=== PATIENT | male | born 1980 | race Two or more races ===

== ENCOUNTER 2017-02-26 21:54 | Emergency (ER) | payer OTHER ==
[2017-02-26] MEDS ORDERED: KETOROLAC TROMETHAMINE 15 MG/ML VIAL IM ONE (22:26)
[2017-02-26] MEDS ORDERED: KETOROLAC TROMETHAMINE 30 MG/1 ML VIAL IM ONE (22:30)
--- NOTE | 2017-02-26 22:57 | PDOC ---
History of Present Illness - General Chief Complaint: Pain, Acute Stated Complaint: INJURY SUNDAY,PAIN TO LOWER BACK DOWN RIGHT LEG Time Seen by Provider: 02/26/17 22:19 - History of Present Illness Initial Comments: 02/26/17 22:52 36 M with no PMH presents to ER with 1 week of R hip pain. Pt states that he fell last week, slipping on a stairwell and landing onto his R hip. He denies headstrike/LOC. Denies neck pain. Pt states that he went to a hospital and had X rays done that he was told were negative. However, he presents with persistent pain today. He expresses concern that they did not perform the X rays properly, as they were having "computer issues". Pt denies CHAVEZ/N/V. States that he has been able to ambulate unassisted but has pain with weight bearing. Pt states that the pain radiates from his lower back down his leg. Denies paresthesias, denies numbness/weakness. Denies saddle anesthesia, denies incontinence of urine or stool. Past History - Past Medical History Allergies/Adverse Reactions: Allergies Allergy/AdvReac Type Severity Reaction Status Date / Time No Known Allergies Allergy Verified 02/26/17 22:50 Home Medications: Ambulatory Orders Ibuprofen [Motrin -] 800 mg PO Q6H #30 tablet 04/24/16 Oxycodone HCl/Acetaminophen [Percocet 5-325 mg Tablet] 1 tab PO Q4H #20 tablet MDD 4 04/24/16 - Psycho/Social/Smoking Cessation Hx Anxiety: No Suicidal Ideation: No Smoking History: Never smoked Have you smoked in the past 12 months: No Hx Alcohol Use: No Drug/Substance Use Hx: No Substance Use Type: None Review of Systems - Review of Systems Comments:: 02/26/17 22:55 "GENERAL/CONSTITUTIONAL: No fever or chills. No weakness. HEAD, EYES, EARS, NOSE AND THROAT: No change in vision. No ear pain or discharge. No sore throat. CARDIOVASCULAR: No chest pain or shortness of breath. RESPIRATORY: No cough, wheezing, or hemoptysis. GASTROINTESTINAL: No nausea, vomiting, diarrhea or constipation. GENITOURINARY: No dysuria, frequency, or change in urination. MUSCULOSKELETAL: + R hip and leg pain SKIN: No rash NEUROLOGIC: No headache, vertigo, loss of consciousness, or change in strength/ sensation. ENDOCRINE: No increased thirst. No abnormal weight change. HEMATOLOGIC/LYMPHATIC: No anemia, easy bleeding, or history of blood clots. ALLERGIC/IMMUNOLOGIC: No hives or skin allergy. " *Physical Exam - Physical Exam Comments: 02/26/17 22:55 "GENERAL: Awake, alert, and fully oriented, in no acute distress HEAD: No signs of trauma EYES: PERRLA, EOMI, sclera anicteric, conjunctiva clear ENT: Auricles normal inspection, hearing grossly normal, nares patent, oropharynx clear without exudates. Moist mucosa NECK: Normal ROM, supple, no lymphadenopathy, JVD, or masses LUNGS: Breath sounds equal, clear to auscultation bilaterally. No wheezes, and no crackles HEART: Regular rate and rhythm, normal S1 and S2, no murmurs, rubs or gallops ABDOMEN: Soft, nontender, normoactive bowel sounds. No guarding, no rebound. No masses EXTREMITIES: TTP over R hip Normal range of motion, no edema. No clubbing or cyanosis. No cords, erythema, or tenderness BACK: No midline TTP, no stepoffs NEUROLOGICAL: Cranial nerves II through XII grossly intact. Normal speech, normal gait, normal strength/sensation in BLE SKIN: Warm, Dry, normal turgor, no rashes or lesions noted. " ED Treatment Course - RADIOLOGY Radiology Studies Ordered: Category Date Time Status FEMUR-RIGHT [RAD] Stat Radiology 02/26/17 22:51 Ordered HIP & PELVIS-RIGHT [RAD] Stat Radiology 02/26/17 22:51 Ordered - Medications Given in the ED: ED Medications Discontinued Medications Generic Name Dose Route Start Last Admin Trade Name Freq PRN Reason Stop Dose Admin Ketorolac Tromethamine 15 mg 02/26/17 22:26 02/26/17 22:35 Toradol Injection - IM 02/26/17 22:27 Not Given ONCE ONE Ketorolac Tromethamine 30 mg 02/26/17 22:30 02/26/17 22:35 Toradol Injection - IM 02/26/17 22:31 30 mg ONCE ONE Administration Medical Decision Making - Medical Decision Making 02/26/17 22:56 36 M with R hip pain radiating down leg. Likely sciatic nerve vs lumbar radiculopathy. Pt with no neuro deficits to suggest cord compression or cauda equina. Ambulatory without assistance. - Repeat XR R hip and femur - Toradol 02/26/17 23:24 XR negative for acute fx. Will DC pt home with neuro f/u for further eval and treatment of lumbar radiculopathy *DC/Admit/Observation/Transfer Diagnosis at time of Disposition: Pain of lower extremity - Discharge Dispostion Disposition: HOME Condition at time of disposition: Stable - Referrals Referrals: Connor Rg DO [Staff Physician] - - Patient Instructions Printed Discharge Instructions: DI for Lumbar Radiculopathy Additional Instructions: Take motrin for pain as needed. Call the number provided to make an appointment with neurology clinic to have your lower back and hip pain further evaluated and treated. Print Language: TURKMEN
[2017-02-26 22:58] VITALS: BP 144/98; PULSE 90; TEMP 98.2; BMI 36.8
== END 2017-02-26 23:32 | disposition home or self-care (01) ==
LOC: FER 21:54
PROC: 3E0233Z Introduction of Anti-inflammatory into Muscle, Percutaneous Approach (ICD-10-PCS; principal; 2017-02-26)
DX: M79.605 Pain in left leg (principal); W10.9XXA Fall (on) (from) unspecified stairs and steps, initial encounter; Y93.89 Activity, other specified; Y92.9 Unspecified place or not applicable
CPT/HCPCS: 73523-TC; 73552-TC-RT; 99281-25

== ENCOUNTER 2021-10-15 19:15 | Emergency (ER) | payer OTHER ==
[2021-10-15 19:43] VITALS: PULSE 113; TEMP 97.8; BMI 38.4
[2021-10-15] MEDS ORDERED: SODIUM CHLORIDE 1,000 ML IV STA (20:08)
[2021-10-15 20:16] LABS: BILIRUBIN,TOTAL 0.3 mg/dl (0.2-1); CALCIUM 9.3 mg/dl (8.5-10); CREATININE 0.9 mg/dl (0.55-1.3)
[2021-10-15 21:05] LABS: BASO % 0.5 % (0-2.0); EOS % 1.2 % (0-4.5); HEMATOCRIT 45.8 % (35.4-49); LYMPH % 29.7 % (8-40); MCH 26.9 pg (25.7-33.7); MCHC 32.9 g/dl (32.0-35.9); MEAN CELL VOLUME 81.7 fl (80-96); MEAN PLT VOLUME 8.5 fl (7.5-11.1); MONO % 5.8 % (3.8-10.2); NEUT % 62.8 % (42.8-82.8); PLATELET COUNT 228 10^3/uL (134-434); RDW 15.1 % (11.9-15.9); WHITE BLOOD COUNT 9.8 K/mm3 (4.0-10.0)
[2021-10-15 21:37] VITALS: BP 157/106
== END 2021-10-15 22:10 | disposition home or self-care (01) ==
LOC: FER 19:15
PROC: 3E0337Z Introduction of Electrolytic and Water Balance Substance into Peripheral Vein, Percutaneous Approach (ICD-10-PCS; principal; 2021-10-15)
DX: R11.0 Nausea (principal)
CPT/HCPCS: 36415; 80053; 84484; 85025; 99284-25